=== PATIENT | female | born 2005 | race Two or more races ===

== ENCOUNTER 2024-09-24 10:37 | Outpatient (CLI) | payer BC, SELFPAY ==
--- NOTE | ~2024-09-24 | XR_ITS ---
XR knee LT 3V 09/24/2024 11:00 Indication: Left knee pain Procedure: 2 views left knee Comparison: No prior studies for comparison. Findings: No fracture, subluxation or dislocation. There is anatomic alignment. No joint space narrow ing. No joint effusion. Impression: 1: No significant bone or joint abnormality. Reviewed, dictated and finalized at location A. Impression: 1: No significant bone or joint abnormality.
--- NOTE | ~2024-09-24 | XR_ITS ---
XR knee RT 3V 09/24/2024 11:00 INDICATION: Knee pain PROCEDURE: 3 views right knee COMPARISON: No prior studies for comparison. FINDINGS: Fracture, dislocation or subluxation is not identified. No significant joint effusion The s oft tissues appear within normal limits. No foreign bodies are identified. IMPRESSION: 1: NO ACUTE BONE OR JOINT ABNORMALITY IDENTIFIED. Reviewed, dictated and finalized at location A.
--- OUTSIDE RECORDS SUMMARY | 2024-09-24 12:34 | XMS_ITS | Clinical Summary ---
Author Organization [facility] Address [address] [place] [address] Phone Care Team Providers Care Patient Access Associate Name Role Phone Provider, None Primary Care Provider Unavailabl e Allergies Active Allergy Reactions Criticality Noted Date Comments Bee Venom Other (see Comments) 01/21/2024 Lactose Other (see Comments) 01/21/2024 Latex Hives 01/21/2024 Medications Cholecalciferol 25 mcg Capsule Take 1 Capsule by mouth daily. 3 Active albuterol (ProAir HFA) 108 (90 Base) MCG/ACT Aerosol SolutionIndicat ions:Acute cough,History of asthma take 2 Puffs by inhalation every 4 hours as needed for Wheezing or Cough. 18 g 3 Active Additional Information Patient not taking.Reported on 01/21/2024 CRANBERRY PO Take by mouth. Ac tive Active Problems No known active problems Immunizations Immunization Administration Dates Next Due DTAP VACCINE 03/11/2008, 5,02/19/2004,12/11 DTAP/HEPB/IPV Vaccine 04/14/2004 Hepatitis A Vaccine, Pediatric/adolescent, 2 Dose Schedule 09/26/2018,05/09/2017 Hepatitis B Vaccine, Pediatric/adolescent 07/06/2004,2003,2003 Hib Vaccine,unspecified Formulation 03/2007,04/14/2004,02/19/2004,12/11 Human Papillomavirus (HPV) 9 -valent Vaccine 09/26/2018,05/09/2017 Inactivated Polio Vaccine 03/11/2008,02/19/2004, 2003 MMR Vaccine 03/11/2008,02/04/2005 Meningococcal Group B OMV 03/10/2020 Meningococcal Vaccine 03/10/2020,04/08/2016 Pneumococcal Vaccine Peds - 7 Valent 07/11/2006, 10/14/2004,2003 TDAP Vaccine 04/08/2016 Varicella Vaccine Live 06/20/2012,02/04/2005 Family History Medical History Relation Name Comments Hypertension Mother Hypertension Paternal Grandmother Relation Name Status Comments Mother Paternal Grandmother Social History Tobacco Use Types Packs/Day Years Used Date Smoking Tobacco: Never Smokeless Tobacco: Never Tobacco Cessation:Counseling Given: Not Answered Alcohol Use Standard Drinks/Week Comments Yes 0 (1 standard drink = 0.6 oz pur e alcohol) sometimes Sexually Active Control Partners Comments Yes Male Comments No Sex and Gender Information Value Date Recorded Sex Assigned at Not on file Legal Sex Female 7:39 PM CDT Gender Identity Not on file Sexual Orientation Not on file Last Filed Vital Signs Vital Sign Reading Time Taken Comments Blood Pressure 118/76 01/21/2024 2:26 PM CDT Pulse 76 01/21/2024 2:26 PM CDT Temperature 36.9 C (98.4 F) 01/21/2024 2:26 PM CDT Respiratory Rate 16 01/21/2024 2:26 PM CDT Oxygen Saturation 95% 01/21/2024 2:26 PM CDT Inhaled Oxygen Concentration - - Weight 64.9 kg (143 lb) 07/03/2023 1:28 AM [employer]ESSION[employer] AIDE Height 160 cm (5' 3 ) 07/03/2023 1:28 AM [employer]ESSION[employer] AIDE Body Mass Index 25.33 07/03/2023 1:28 AM [employer]ESSIONAL [employer] AIDE Plan of Treatment Health Maintenance Due Date Last Done Comments Influenza Immunization (#1) 2024 SARS-COV-2 Immunization ( season) 2024 DTaP/Tdap/Td Immunization (7 - Td or Tdap) 04/08/2026 04/08/2016, 03/11/2008, 05/11/2005, Additional history exists Respiratory Syncytial Virus (RSV) Immunization (Adult) (1 - 1-dose 75+ series) 10/08/2078 Hepatitis B Immunization Completed 005, 04/14/2004, 2003, Additional history exists Pneumococcal Immunization Combined Aged Out 07/11/2006, 10/14/2004, 2003 No longer eligible based on patient's age to complete this topic Measles Mumps Rubella (MMR) Immunization Discontinued 03/11/2008, 02/04/2005 Polio (IPV) Immunization Discontinued 008, 04/14/2004, 02/19/2004, Additional history exists Varicella Immunization Discontinued 06/20/2012, 2004 Hepatitis A Immunization Discontinued 09/26/2018, 12/2016 Human Papillomavirus (HPV) Immunization Completed 09/26/2018, 05/09/2017 Meningococcal Immunization (ACWY) Completed 03/10/2020, 04/08/2016 Meningococcal B Immunization Completed 06/02/2021, 03/10/2020 Hepatitis C Virus (HCV) Screening Completed 01/21/2024 Rotavirus Immunization Aged Out No lo nger eligible based on patient's age to complete this topic Procedures Procedure Name Priority Date/Time Associated Diagnosis Comments HEPATITIS PANEL ACUTE (AHP) Routine 01/21/2024 2:50 PM CDT Acute vaginitis from Last 3 Months or Most Recently Relevant to Health Maintenance Results * HEPATITIS PANEL ACUTE (AHP) (01/21/2024 2:50 PM CDT) HEPATITIS A IGM ANTIBODY NON DETECTED NON DETECTED 01/22/2024 10:21 PM CDT [facility] Comment: IGM Antibodies to HAV not detected. Does not exclude early acute or recovered HAV infection. HEP B CORE AB (IGM) NON DETECTED NON DETECTED 01/22/2024 10:21 PM CDT [facility] Comment:IGM anti-HBC not det ected. Does not exclude the possibility of exposure to or infection with HBV. HEPATITIS B SURFACE ANTIGEN NON DETECTED NON DETECTED 01/22/2024 10:21 PM CDT [facility] Comment:A nonreactive test r esult does not exclude the possibility of exposure to or infection with Hepatitis B virus. A nonreactive test result in individuals with prior exposure to hepatitis B may be due to antigen levels below the detection limit of this assay or lack of antigen reactivity to the antibodies in this assay. hepatitis C antibody 0.14 <1 S/CO 01/22/2024 10:21 PM CDT [facility] Comment: Signal/Cutoff ratio < 0.79 is Nondetected Signal/Cutoff ratio 0.80-0.99 is Grayzone Signal/Cutoff ratio > 0.99 is Detected Supplemental assays are recommended if signal/cutoff ratio is >/=1.00. Signal/cutoff ratio result >/= 5.00 is 97% predictive of positivity for recombinant immunoblot assay (RIBA) and will be reported to the [place] [facility] as required. Blood Venipuncture / Unknown 01/21/2024 2:50 PM CDT 01/21/2024 2:50 PM CDT us Lou Garber APRN, SAFETY DEPOSIT SUPERVISOR HEMATOLOGY ORDERAB LES Final Result [facility] [address] [place] [address], [place] from Last 3 Months or Most Recently Relevant to Health Maintenance Insurance [place] [facility] Care Teams Patient Access Associate Relationship Specialty Start Date End Date Provider, None [place] PCP - General 07/03/23
[2024-09-24 20:05] LABS: Alanine Aminotransferase 15 U/L (6-35); Albumin Level 4.9 g/dL (3.5-5.1); Alkaline Phosphatase 47 U/L (38-126); Anion Gap 8 mmol/L (4-12); Aspartate Amino Transferase 61 U/L (14-36); Bilirubin,Total 0.7 mg/dL (0.2-1.3); Blood Urea Nitrogen 11 mg/dL (7-17); Calcium 9.6 mg/dL (8.4-10.2); Carbon Dioxide 28 mmol/L (22-30); Chloride 103 mmol/L (98-107); Cholesterol 218 mg/dL (0-200); Estimated Glomerular Filt Rate > 60; Glucose 84 mg/dL (65-110); LDL Cholesterol Direct 52 mg/dL; Potassium 4.3 mmol/L (3.4-5.0); Sodium 139 mmol/L (137-145); Triglycerides 49 mg/dL (<150)
[2024-09-24 20:14] LABS: Hematocrit 41.4 % (37.0-47.0); Hemoglobin 12.7 g/dL (12.0-15.0); Mean Corpuscular HGB Conc 30.7 g/dl (32-36); Mean Corpuscular Hemoglobin 27.1 pg (26-34); Mean Corpuscular Volume 88.5 fl (80-100); Mean Platelet Volume 11.7 fl (7.4-10.4); Platelet Count Result 275 k/mm3 (150-375); Red Blood Count 4.68 M/mm3 (4.2-5.4); Red Cell Distribution Width 13.6 % (11.5-14.5)
[2024-09-24 20:15] LABS: Thyroid Stimulating Hormone 0.909 uIU/mL (0.465-4.680)
[2024-09-24 20:20] LABS: HDL Direct 132 mg/dL
[2024-09-24 20:58] LABS: Vitamin D 25 Hydroxy 23.5 ng/mL
== END 2024-09-24 10:38 | disposition home or self-care (01) ==
LOC: ANHBWCLAB 10:40
PROVIDERS: PCP Nurse Practitioner Adult Health; Visit Provider Nurse Practitioner Adult Health
DX: Z13.9 Encounter for screening, unspecified (principal); E55.9 Vitamin D deficiency, unspecified; M25.561 Pain in right knee
CPT/HCPCS: 36415; 73562; 80053; 80061; 82306; 84443; 85027